=== PATIENT | female | born 1970 | race Caucasian/White ===

== ENCOUNTER 2016-06-20 08:00 | Outpatient (CLI) | payer MEDICAID | END 2016-06-20 08:01 | disposition home or self-care (01) | DX: E78.5 Hyperlipidemia, unspecified (principal); E66.9 Obesity, unspecified; I10 Essential (primary) hypertension; E11.9 Type 2 diabetes mellitus without complications ==

== ENCOUNTER 2017-01-10 08:18 | Outpatient (CLI) | payer MEDICAID ==
[2017-01-10 13:14] LABS: BASOPHILS # (AUTO) 0.1 10^3/uL (0.0-0.1); BASOPHILS % (AUTO) 1.1 %; EOSINOPHILS # (AUTO) 0.3 10^3/uL (0.0-0.7); EOSINOPHILS % (AUTO) 3.5 %; HCT - HEMATOCRIT 35.8 % (37.0-47.0); HGB - HEMOGLOBIN 12.1 g/dL (12.0-16.0); LYMPHOCYTES % (AUTO) 38.1 %; MEAN CORPUSCULAR HEMOGLOBIN 27.2 pg (27.0-31.0); MEAN CORPUSCULAR HGB CONC 33.8 g/dL (32.0-36.0); MEAN CORPUSCULAR VOLUME 80.4 fL (81.0-99.0); MEAN PLATELET VOLUME 8.1 fL (7.9-10.8); MONOCYTES # (AUTO) 0.5 10^3/uL (0.0-1.0); MONOCYTES % (AUTO) 5.7 %; NEUTROPHILS # (AUTO) 4.1 10^3/uL (1.5-6.6); NEUTROPHILS % (AUTO) 51.6 %; NUCLEATED RED BLOOD CELLS AUTO 0.1 /100WBC; RED BLOOD COUNT 4.45 10^6/uL (4.20-5.40); RED CELL DISTRIBUTION WIDTH 14.3 % (12.0-15.0); UNCORRECTED WHITE BLOOD COUNT 7.9 x10^3/uL; WHITE BLOOD COUNT 7.9 x10^3/uL (4.8-10.8)
[2017-01-10 13:25] LABS: ALBUMIN/GLOBULIN RATIO 1.2 (1.0-2.2); BILIRUBIN,TOTAL 0.4 mg/dL (0.2-1.0); BUN - BLOOD UREA NITROGEN 8 mg/dL (6-20); CARBON DIOXIDE - CO2 25 mmol/L (21-32); CHLORIDE 102 mmol/L (101-111); CHOL/HDL RATIO 2.8 (<4.4); CHOLESTEROL 193 mg/dL; CREATININE 0.6 mg/dL (0.4-1.0); GFR - MDRD 107 (>89); GLUCOSE 270 mg/dL (70-100); HDL CHOLESTEROL 68 mg/dL; LDL/HDL RATIO 1.3 (<4.4); POTASSIUM 3.9 mmol/L (3.5-5.0); SODIUM 136 mmol/L (135-145); TOTAL PROTEIN 7.2 g/dL (6.7-8.2); TRIGLYCERIDES 176 mg/dL; VLDL CHOLESTEROL 35 mg/dL
[2017-01-10 13:39] LABS: HEMOGLOBIN A1C 1.02 g/dL
== END 2017-01-10 08:19 | disposition home or self-care (01) ==
LOC: LAB.N 08:18
PROVIDERS: ATTEND Physician Assistant
DX: E66.9 Obesity, unspecified (principal); E78.5 Hyperlipidemia, unspecified; I10 Essential (primary) hypertension; E11.9 Type 2 diabetes mellitus without complications
CPT/HCPCS: 36415; 80050; 80061; 82043; 83036

== ENCOUNTER 2018-01-08 08:00 | Outpatient (CLI) | payer MEDICAID ==
[2018-01-08 13:45] LABS: ALBUMIN 3.6 g/dL (3.2-5.5); BILIRUBIN,TOTAL 0.6 mg/dL (0.2-1.0); CALCIUM 8.9 mg/dL (8.5-10.3); CREATININE 0.5 mg/dL (0.4-1.0); TOTAL PROTEIN 7.1 g/dL (6.7-8.2)
[2018-01-08 14:06] LABS: HB2 TOTAL 11.7 g/dL; HEMOGLOBIN A1C 0.75 g/dL
== END 2018-01-08 08:01 | disposition home or self-care (01) ==
LOC: LAB.WCP 08:00
PROVIDERS: ATTEND Nurse Practitioner Gerontology
DX: I10 Essential (primary) hypertension (principal); E11.9 Type 2 diabetes mellitus without complications
CPT/HCPCS: 36415; 80053; 82043; 83036

== ENCOUNTER 2018-03-01 08:34 | Outpatient (CLI) | payer MEDICAID ==
--- NOTE | 2018-03-05 13:49 | Mammography Report ---
Reason: SCREENING MAMMO Procedure Date: 03/01/2018 Accession Number: [id number] / [id number] Procedure: [facility] - Screening Mammo Dig Bilat CPT Code: FULL RESULT: EXAM: Screening Mammo Dig Bilat DATE: 03/01/2018 8:52 AM CLINICAL HISTORY: 47-year-old female with history of early menses. TECHNIQUE: Bilateral CC, laterally exaggerated CC, MLO views were obtained. COMPARISON: 12/22/2013, 12/13/2013. FINDINGS: The breasts demonstrate heterogeneously dense fibroglandular parenchyma bilaterally. A typically benign coarse calcification is seen in the right breast. Typically benign vascular calcifications are seen bilaterally. No suspicious masses, clustered microcalcifications, or regions of architectural distortion are identified. IMPRESSION: Benign findings RECOMMENDATION: Routine annual screening unless otherwise clinically indicated. BIRADS CATEGORY 2: Benign findings STANDARD QUALIFYING STATEMENTS: 1. This examination was not reviewed with the aid of Computer-Aided Detection (CAD). 2. A negative or benign imaging report should not delay biopsy if clinically suspicious findings are present. Consider surgical consultation if warrented. More than 5% of cancers are not identified by imaging. 3. Dense breasts may obscure an underlying neoplasm. 4. This examination was reviewed without the aid of 3D breast imaging (tomosynthesis).
== END 2018-03-01 08:35 | disposition home or self-care (01) ==
LOC: DI.N 08:34
PROVIDERS: ATTEND Nurse Practitioner Gerontology
DX: Z12.31 Encounter for screening mammogram for malignant neoplasm of breast (principal)
CPT/HCPCS: 77067

== ENCOUNTER 2018-07-23 11:09 | Outpatient (CLI) | payer MEDICAID ==
[2018-07-23 19:25] LABS: CHOL/HDL RATIO 2.7 (<4.4); CHOLESTEROL 202 mg/dL; HDL CHOLESTEROL 75 mg/dL; LDL CHOLESTEROL,CALCULATED 108 mg/dL; LDL/HDL RATIO 1.4 (<4.4); VLDL CHOLESTEROL 19 mg/dL
[2018-07-23 19:56] LABS: HB2 TOTAL 13.1 g/dL; HEMOGLOBIN A1C 0.96 g/dL; HEMOGLOBIN A1C % 8.9 % (4.6-6.2)
== END 2018-07-23 23:59 | disposition home or self-care (01) ==
LOC: LAB.N 11:09
PROVIDERS: ATTEND Nurse Practitioner Gerontology
DX: E78.5 Hyperlipidemia, unspecified (principal)
CPT/HCPCS: 36415; 80061; 83036; 83721

== ENCOUNTER 2019-01-22 08:00 | Outpatient (CLI) | payer MEDICAID ==
[2019-01-22 13:27] LABS: ALBUMIN 3.9 g/dL (3.2-5.5); ALBUMIN/GLOBULIN RATIO 1.1 (1.0-2.2); BILIRUBIN,TOTAL 0.5 mg/dL (0.2-1.0); CREATININE 0.6 mg/dL (0.4-1.0); TOTAL PROTEIN 7.3 g/dL (6.7-8.2)
[2019-01-22 13:42] LABS: CREATININE,URINE 85.5 mg/dL; MICROALBUM/CREATININE RATIO,UR 64.3 ug/mg (<30.0); MICROALBUMIN,URINE 5.5 mg/dL (0-300.0)
[2019-01-22 13:46] LABS: HB2 TOTAL 12.3 g/dL; HEMOGLOBIN A1C 0.87 g/dL; HEMOGLOBIN A1C % 8.6 % (4.6-6.2)
== END 2019-01-22 23:59 | disposition home or self-care (01) ==
LOC: LAB.N 08:00
PROVIDERS: ATTEND Nurse Practitioner Gerontology
DX: E78.5 Hyperlipidemia, unspecified (principal); I10 Essential (primary) hypertension; E11.9 Type 2 diabetes mellitus without complications
CPT/HCPCS: 36415; 80053; 82043; 82570; 83036

== ENCOUNTER 2019-04-29 13:41 | Outpatient (CLI) | payer MEDICAID ==
--- NOTE | 2019-04-29 15:15 | Mammography Report ---
Reason: RT BREAST PAIN Procedure Date: 04/29/2019 Accession Number: [id number] / [id number] Procedure: [facility] - Diagnostic Dig Bilat CPT Code: Final Report FULL RESULT: EXAM: Diagnostic Dig Bilat with isabelle DATE: 04/29/2019 3:01 PM CLINICAL HISTORY: The patient is a 48-year-old female presenting with breast pain and transient left breast lumps (none noted by the patient today). No reported personal or family history of breast cancer. TECHNIQUE: (B) - Bilateral CC and MLO views were obtained. COMPARISON: 03/01/2018, 12/13/2013 PARENCHYMAL PATTERN: (D) - The breasts demonstrate heterogeneously dense fibroglandular parenchyma bilaterally. FINDINGS: The pattern of asymmetry is stable given positional differences. There are no suspicious masses, calcifications, or areas of distortion. There is no mammographic evidence for malignancy. IMPRESSION: Negative examination. BI-RADS category 1. RECOMMENDATION: (Clinical follow-up. Benign imaging should not dissuade further evaluation of any suspicious changes. Consider referral for targeted ultrasound of any areas of persistent clinical concern, if warranted. BI-RADS CATEGORY: (1) - Negative. STANDARD QUALIFYING STATEMENTS: 1. This examination was not reviewed with the aid of Computer-Aided Detection (CAD). 2. A negative or benign imaging report should not preclude biopsy if clinically suspicious findings are present. 3. Dense breasts may obscure an underlying neoplasm. 4. This examination was reviewed with the aid of 3D breast imaging (tomosynthesis).
== END 2019-04-29 13:42 | disposition home or self-care (01) ==
LOC: DI 13:41
PROVIDERS: ATTEND Nurse Practitioner Gerontology
DX: N64.4 Mastodynia (principal)
CPT/HCPCS: 77066

== ENCOUNTER 2019-10-31 12:38 | Outpatient (CLI) | payer MEDICAID | END 2019-10-31 12:39 | disposition home or self-care (01) | LOC: NS 12:38 | PROVIDERS: ATTEND Nurse Practitioner Family | DX: Z71.3 Dietary counseling and surveillance (principal); E11.9 Type 2 diabetes mellitus without complications ==

== ENCOUNTER 2019-11-07 07:00 | Outpatient (CLI) | payer MEDICAID ==
[2019-11-07 18:27] LABS: BASOPHILS % (AUTO) 0.5 %; EOSINOPHILS % (AUTO) 1.8 %; HGB - HEMOGLOBIN 11.5 g/dL (12.0-16.0); LYMPHOCYTES % (AUTO) 34.1 %; MEAN CORPUSCULAR HEMOGLOBIN 27.6 pg (27.0-31.0); MEAN CORPUSCULAR HGB CONC 31.9 g/dL (32.0-36.0); MEAN CORPUSCULAR VOLUME 86.6 fL (81.0-99.0); MEAN PLATELET VOLUME 9.9 fL (7.9-10.8); MONOCYTES % (AUTO) 5.9 %; NEUTROPHILS % (AUTO) 57.3 %; PLT - PLATELET COUNT 301 10^3/uL (130-450); RED BLOOD COUNT 4.17 10^6/uL (4.20-5.40); RED CELL DISTRIBUTION WIDTH 14.2 % (12.0-15.0)
[2019-11-07 18:32] LABS: ABNORMAL LYMPHS % (MANUAL) 0 %
[2019-11-07 19:03] LABS: HB2 TOTAL 12.1 g/dL; HEMOGLOBIN A1C 0.87 g/dL; HEMOGLOBIN A1C % 8.7 % (4.6-6.2)
[2019-11-07 19:05] LABS: ALBUMIN 3.7 g/dL (3.2-5.5); ALBUMIN/GLOBULIN RATIO 1.1 (1.0-2.2); ALKALINE PHOSPHATASE 43 IU/L (42-121); ALT ALANINE AMINOTRANSFERASE 28 IU/L (10-60); AST ASPARTATE AMINOTRANSFERASE 20 IU/L (10-42); BILIRUBIN,TOTAL 0.6 mg/dL (0.2-1.0); BUN - BLOOD UREA NITROGEN 7 mg/dL (6-20); CALCIUM 9.1 mg/dL (8.5-10.3); CARBON DIOXIDE - CO2 25 mmol/L (21-32); CHLORIDE 102 mmol/L (101-111); CHOLESTEROL 224 mg/dL; CREATININE 0.5 mg/dL (0.4-1.0); GLUCOSE 173 mg/dL (70-100); HDL CHOLESTEROL 75 mg/dL; LDL CHOLESTEROL,CALCULATED 122 mg/dL; LDL/HDL RATIO 1.6 (<4.4); SODIUM 137 mmol/L (135-145); VLDL CHOLESTEROL 27 mg/dL
[2019-11-07 19:08] LABS: CREATININE,URINE 112.2 mg/dL; MICROALBUM/CREATININE RATIO,UR 210.3 ug/mg (<30.0); MICROALBUMIN,URINE 23.6 mg/dL (0-300.0)
[2019-11-07 19:48] LABS: BAND NEUTROPHILS % (MANUAL) 2 %; DIFFERENTIAL COMMENT MANUAL DIFFERENTIAL; EOSINOPHILS # (MANUAL) 0.1 10^3/uL (0-0.7); LYMPHOCYTES % (MANUAL) 38 %; MONOCYTES # (MANUAL) 0.2 10^3/uL (0.0-1.0); PLATELET ESTIMATE, MANUAL NORMAL (130-450,000) (NORMAL); PLATELET MORPHOLOGY NORMAL APPEARANCE (NORMAL); RBC MORPHOLOGY (MULTIPLE) NORMAL APPEARANCE (NORMAL)
== END 2019-11-07 23:59 ==
LOC: LAB.WCP 07:00
PROVIDERS: ATTEND Nurse Practitioner Family
DX: E66.9 Obesity, unspecified (principal); E78.5 Hyperlipidemia, unspecified; E11.9 Type 2 diabetes mellitus without complications; I10 Essential (primary) hypertension
CPT/HCPCS: 36415; 80050; 80061; 82043; 82570; 83036; 83721